=== PATIENT | male | born 1990 | race Caucasian/White ===

== ENCOUNTER 2019-10-20 15:42 | Emergency (ER) | payer SELFPAY ==
[2019-10-20 15:46] VITALS: BP 162/101; PULSE 103; RESP 20; TEMP 36.8; O2SAT 98
--- NOTE | 2019-10-20 15:56 | ED.GENADUL_ITS ---
Discharge Plan Disposition Patient Disposition: HOME Discharge Details Chief Complaint: GenMedical Clinical Impression: Heat exhaustion, Corneal abrasion Primary Care Provider: None,None ED Provider: Baljit Velez Home Meds and New Rx's Prescriptions: Continued acetaminophen 500 mg Tablet 500 mg PO PRN PRNRF: 0 Discharge Instructions Instructions: Heat Exhaustion (ED), Corneal Abrasion (ED) Additional Instructions: if discomfort in eye continues Wednesday call [facility] for an appointment [phone] if significant worsening pain, loss of vision, difficulty breathing or high fevers return to the emergency department Medical Decision Making 29 yo male who denies chronic medical problems comes in with cc of right eye p ain and fatigue. He states he was out in hot humid weather today tearing down a shed and began to feel hot and tired and lightheaded. He drank fluids and felt better but during this tearing down of the shed felt something go in his right eye. Denies vision changes, or loss of vision. He arrives with mild general fatigue, hd stable, no chest pain, dyspnea, abdominal pain, mild headache, no neck stiffness.He has right conjunctival erythema, perrl, eomi, no periorbital swelling. Will place tetracaine and perform more thorough exam. Will also give IVF and check cmp and ck for likely heat exhaustion no foreign body sen even on eyelid flip, had immediate relief of pain with tetracaine. Place flourescein and has 2mm small corneal abrasion on conjunctiva at [address] on erythromycin ointment and f/u with [facility] if not improved by Wednesday labs show mild elevation in BUN otherwise unremarkable. He feels much better, stable neuro exam and vitals. Suspect heat exhaustion. Will d/c home and return precautions given Differential Diagnosis Differential Diagnosis: foreign body, corneal abrasion, heat exhaustion Lab Data Lab results reviewed: Yes I reviewed the patient's lab results. HPI General Mode of arrival: ambulatory . Date/Time Provider Initiated Documentation: 10/20/19 15:43 . Limitations to Documentation: no limitations . Information obtained by: patient . History of Present Illness 29 year old M presents to the emergency department with the chief complaint of right eye pain, described as moderate, and it has been constant. No relieving factors improve symptom(s), No exacerbating factors reported . Patient did receive the following treatments prior to arrival, none Related Data Home Medications Medication Instructions Recorded Confirmed acetaminophen 500 mg PO PRN PRN 10/20/19 10/20/19 Allergies Allergy/AdvReac Type Severity Reaction Status Date / Time Penicillins Allergy Unknown Unverified 10/20/19 15:49 General Stated Complaint: GenMedical ARYAN: 3 Review of Systems All systems reviewed & are unremarkable except as noted in HPI and below Constitutional Constitutional: Denies chills and Denies fever(s) Cardiovascular Cardiovascular: Denies chest pain and Denies dyspnea Respiratory Respiratory: Denies cough and Denies dyspnea Gastrointestinal Gastrointestinal: Denies abdominal pain, Denies nausea and Denies vomiting Musculoskeletal Musculoskeletal: Denies joint swelling Psychiatric Psychiatric: Denies depression [facility] Social History Smoking/Tobacco Use Status: Current every day Alcohol Intake: current Alcohol Intake frequency: 0-2 drinks per day Drug use: Never Do you feel safe at home: Yes Do you feel safe in your relationship?: Yes Exam Const General: no acute distress Orientation: alert HENMT Head: normal to inspection Ears: external ears normal General nose exam: external nose normal Mouth: moist mucous membranes Eyes Periorbital: periorbital findings normal Neck Neck: normal visual inspection Resp Effort & Inspection: normal respiratory effort and able to speak in complete sentences Cardio Rate: regular rate Skin General skin exam: no rashes or lesions noted Neuro General: patient alert and patient oriented x3 Extrem General: normal to inspection Psych Mental Status: mental status grossly normal Course Vital Signs Vital signs: Vital Signs Temperature 36.8 C 10/20/19 15:46 Pulse 103 H 10/20/19 15:46 Respiratory Rate 10/20/19 15:46 Blood Pressure 162/101 H 10/20/19 15:46 Pulse Oximetry 98 10/20/19 15:46 Temperature 36.8 C 10/20/19 15:46 Temperature Source Oral 10/20/19 15:46 Pulse 103 H 10/20/19 15:46 Respiratory Rate 10/20/19 15:46 Blood Pressure 162/101 H 10/20/19 15:46 Blood Pressure Position Sitting 10/20/19 15:46 Pulse Oximetry 98 10/20/19 15:46 Oxygen Delivery Method Room Air 10/20/19 15:46 Oxygen Flow Rate 0 10/20/19 15:46
[2019-10-20] MEDS: Tetracaine 0.5% 4 ML BTL OP (16:02)
[2019-10-20] MEDS: Normal Saline 1,000 ML 1000 ML IV (16:02)
[2019-10-20] MEDS: Fluorescein STRIPS 100/BOX 1 MG OP (16:03)
[2019-10-20] MEDS: Normal Saline Flush 10 ML SYR IVP (16:03)
[2019-10-20 16:06] LABS: BE (Venous) 0.1 mmol/L (-3-3); HCO3 (Venous) 25 mmol/L (22-28); O2 Sat (Venous) 94 % (70-80); TCO2 (Venous) 22 mmol/L (22-29); pCO2 (Venous) 40 mm/Hg (34-47); pO2 (Venous) 66 mm/Hg (28-44)
[2019-10-20 16:08] LABS: Abs Immature Grans 0.03 k/cumm (0.0-0.09); Absolute Basophil Count 0.03 k/cumm (0.0-0.2); Absolute Eosinophil Count 0.05 k/cumm (0.0-0.7); Absolute Lymphocyte Count 1.43 k/cumm (1.2-3.4); Absolute Monocyte Count 1.22 k/cumm (0.11-0.7); Absolute Neutrophil Count 7.85 k/cumm (1.2-6.7); Basophils % 0.3; Eosinophils % 0.5; Immature Grans % 0.3 %; Lymphocytes % 13.5; Mean Corp. HGB Concentration 35.6 g/dL (32.0-36.0); Mean Corpuscular Hemoglobin 32.8 pg (27.0-33.0); Mean Corpuscular Volume 92.2 fL (80-95); Mean Platelet Volume 10.6 fL (8.0-11.0); Monocytes % 11.5; Neutrophils % 73.9; Platelet Count 216 x1000/uL (130-400); RBC 4.88 m/cumm (4.50-6.00); RBC Distribution Width 12.4 % (11.8-14.1); White Blood Cell Count 10.61 k/cumm (4.4-10.8)
[2019-10-20 16:21] VITALS: BP 146/95
[2019-10-20 16:24] LABS: ALT 32 U/L (16-63); AST 34 U/L (15-37); Albumin 4.4 g/dL (3.4-5.0); Alkaline Phosphatase 51 U/L (46-116); Anion Gap 8.9 mmol/L (3-11); BUN 22 mg/dL (7-18); Bilirubin, Total 1.9 mg/dL (0.2-1.0); CO2 26.1 mmol/L (21.0-32.0); Calcium 9.1 mg/dL (8.5-10.1); Chloride 100 mmol/L (98-107); Creatine Kinase 262 U/L (39-308); Glucose 113 mg/dL (74-106); Potassium 3.5 mmol/L (3.5-5.1); Sodium 135 mmol/L (136-145); Total Protein 7.5 g/dL (6.4-8.2)
[2019-10-20] MEDS: Erythromycin Ophth Oint 3.5 GM TUBE OP (16:27)
[2019-10-20 16:47] VITALS: BP 150/85; PULSE 86; RESP 18; TEMP 37.2; O2SAT 99
== END 2019-10-20 16:53 | disposition home or self-care (01) ==
PROVIDERS: Emergency Provider Emergency Medicine
DX: S05.01XA Injury of conjunctiva and corneal abrasion without foreign body, right eye, initial encounter (principal); X58.XXXA Exposure to other specified factors, initial encounter; T67.5XXA Heat exhaustion, unspecified, initial encounter; X30.XXXA Exposure to excessive natural heat, initial encounter
CPT/HCPCS: 36415; 80053; 82550; 82805; 96360; 99284; 85025

== ENCOUNTER 2023-09-27 09:45 | Emergency (ER) | payer SELFPAY ==
--- NOTE | 2023-09-27 09:45 | DI.RAD_ITS ---
Exam(s) XR SHOULDER RT COMPLETE 2+V EXAM: XR SHOULDER RT COMPLETE 2+V CLINICAL HISTORY: Fall, Pain. TECHNIQUE: 2D digital imaging was performed. Five views. COMPARISON: No exams were available for comparison FINDINGS: BONES: No acute fracture is present. No bony destructive lesion is seen. JOINTS: No dislocation present. Slight widening of the AC joint. SOFT TISSUE: Normal. IMPRESSION: Mild acromioclavicular joint separation. DATA REPOSITORY: RADIATION DOSE DELIVERED:
[2023-09-27 09:47] VITALS: BP 196/86; PULSE 70; RESP 18; TEMP 36.6; O2SAT 99
--- NOTE | 2023-09-27 10:29 | W.ED.GENAD ---
Discharge Plan Disposition Patient Disposition: Home Condition: Stable Discharge Details Clinical Impression: Separation of right acromioclavicular joint Primary Care Provider: Sylvie Rosales ED Provider: Maria T Dominguez Home Meds and New Rx's Prescriptions: No Action No Known Home Meds Discharge Instructions Instructions: Acromioclavicular Separation (ED), Shoulder Sprain (ED) Additional Instructions: X-rays show that you have a separation of the AC joint. This is like a sprain. Please keep your arm in the sling is much as possible when out and about for the next couple weeks. Do not lift your arm higher than 90 degrees. Rest ice. Please take Tylenol or Ibuprofen with food every 4-6 hours as needed for pain and swelling. You were placed on the follow-up orthopedic list today, they will call you to make an appointment if needed. If you have any worsening or concerns you may call them for a follow-up appointment. Stand Alone Forms: Work Release Referrals: Nik Akhtar MD [ [facility] STAFF PHYSICIAN] - 2 weeks Discharge Data Discharge Date/Time-TO BE ENTERED AT DEPARTURE: 09/27/23 10:59 HPI General Mode of arrival: ambulatory. Date/Time Provider Initiated Documentation: 09/27/23 09:50. Limitations to Documentation: no limitations. Information obtained by: patient, RN notes reviewed and old records reviewed. HPI Narrative: 33-year-old male presents to the ER with a chief complaint right shoulder pain after falling onto his right shoulder last night at a campfire. He has decreased range of motion noted and 6 out of 10 pain. He is able to abduct it approximately 45 degrees. Distal CMS intact no obvious deformity or obvious dislocation. He does have pinpoint tenderness over his AC joint. Did not take any Tylenol or ibuprofen prior to arrival. No other complaints of injuries denies any neck pain back pain or headache. 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 He is allergic to penicillin. Denies any other significant past medical history. Related Data Home Medications Medication Instructions Recorded Confirmed Unknown [No Known Home Meds] 09/27/23 09/27/23 Allergies Allergy/AdvReac Type Severity Reaction Status Date / Time Penicillins Allergy Unknown Anaphylaxis Unverified 09/27/23 09:50 General Stated Complaint: Orthopedic ARYAN: 4 Review of Systems All systems reviewed & are unremarkable except as noted in HPI and below Musculoskeletal Musculoskeletal: Reports system reviewed and no additional complaints, except as documented, Reports as per HPI, Reports arthralgias and Reports limited range of motion Exam Const General: cooperative, healthy appearing, comfortable and well developed Nutritional Appearance: average body habitus Orientation: alert, awake and oriented x3 Resp Effort & Inspection: normal respiratory effort and able to speak in complete sentences Cardio Rate: regular rate Rhythm: regular rhythm Extrem General: normal to inspection Right upper extremity: normal to inspection, normal capillary refill, no joint enlargement and shoulder/upper arm Details: tenderness Location: of the A-C joint and abnormal ROM Details: pain with active ROM Details: in ABduction, in extension and in internal rotation Left upper extremity: normal to inspection, full ROM and normal capillary refill Course Vital Signs Vital signs: Vital Signs Temperature 36.6 C 09/27/23 09:47 Pulse 70 09/27/23 09:47 Respiratory Rate 18 09/27/23 09:47 Blood Pressure 196/86 H 09/27/23 09:47 Pulse Oximetry 99 09/27/23 09:47 Temperature 36.6 C 09/27/23 09:47 Temperature Source Tympanic 09/27/23 09:47 Pulse 70 09/27/23 09:47 Respiratory Rate 18 09/27/23 09:47 Respiratory Effort Normal, Non-Labored 09/27/23 09:50 Blood Pressure 196/86 H 09/27/23 09:47 Blood Pressure Position Sitting 09/27/23 09:47 Pulse Oximetry 99 09/27/23 09:47 Oxygen Delivery Method Room Air 09/27/23 09:47 Oxygen Flow Rate 0 09/27/23 09:47 Pain Level 6 09/27/23 09:47 Medical Decision Making 33-year-old male presents to the ER with a chief complaint right shoulder pain after falling onto his right shoulder last night at a campfire. He has decreased range of motion noted and 6 out of 10 pain. He is able to abduct it approximately 45 degrees. Distal CMS intact no obvious deformity or obvious dislocation. He does have pinpoint tenderness over his AC joint. Did not take any Tylenol or ibuprofen prior to arrival. No other complaints of injuries denies any neck pain back pain or headache. 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 He is allergic to penicillin. Denies any other significant past medical history. On exam patient has no obvious deformity noted to his right shoulder, negative C-spine tenderness no crepitus step-off to his C-spine, no new injuries scalp injuries. He does have tenderness with pinpoint palpation over his AC joint. Distal CMS intact. Suspect AC joint separation, differential diagnosis includes but not limited to fracture occult fracture or dislocation. Sling ordered, ibuprofen and ice pack. X-ray right shoulder pending at this time. Discussed home care follow-up care pending official x-ray results. X-ray shows right AC joint separation. Patient placed in a sling, instructed on home care and use placed on orthopedic follow-up list and instructed to follow-up with orthopedics if needed for further evaluation and discussion of treatment. Patient given a work note as he is a manufacturing assembler. All the questions were answered to the best my ability. This text was generated using [employer] dictation system, please disregard any oddities of phrase or misspellings. Imaging Data Radiologic Study: Attestation: I personally reviewed and interpreted this imaging study as follows: Imaging: X-Ray My impression: Right AC joint separation Radiologist's impression: Exam: XR Right Shoulder Exam date and time: 09/27/2023 10:09 AM Age: 33 years old Clinical indication: Injury or trauma; Fall; Sprain or strain; Shoulder; Right TECHNIQUE: Imaging protocol: Radiologic exam of the right shoulder. Views: 2 or more views. COMPARISON: No relevant prior studies available. FINDINGS: Bones/joints: Acromioclavicular separation. No evidence of coracoclavicular separation. Clavicle is intact. Proximal humerus is intact. Glenohumeral joint is normal. Soft tissues: Soft tissue swelling. IMPRESSION: Acromioclavicular separation. Thank you for allowing us to participate in the care of your patient. Dictated and Authenticated by: Ryder Burger MD Quality:SDOH Health Related Social Needs: No Data to Display PFSH All Active Problems (Updated 09/27/23 @ 10:50 by Maria T Dominguez NP) Separation of right acromioclavicular joint (Acute) Social History Smoking/Tobacco Use Status: Current every day Smoking risk assessment performed?: Yes Alcohol Intake: current Alcohol Intake frequency: 0-2 drinks per day Drug use: Never Do you feel safe at home: Yes Do you feel safe in your relationship?: Yes
[2023-09-27] MEDS: Ibuprofen 600 MG TAB PO (10:34)
--- NOTE | 2023-09-27 10:42 | DI.VRAD_ITS ---
PROCEDURE INFORMATION: Exam: XR Right Shoulder Exam date and time: 09/27/2023 10:09 AM Age: 33 years old Clinical indication: Injury or trauma; Fall; Sprain or strain; Shoulder; Right TECHNIQUE: Imaging protocol: Radiologic exam of the right shoulder. Views: 2 or more views. COMPARISON: No relevant prior studies available. FINDINGS: Bones/joints: Acromioclavicular separation. No evidence of coracoclavicular separation. Clavicle is intact. Proximal humerus is intact. Glenohumeral joint is normal. Soft tissues: Soft tissue swelling. IMPRESSION: Acromioclavicular separation. Dictated and Authenticated by: Ryder Burger MD. Ordering:SANA Live MD
[2023-09-27 10:58] VITALS: BP 196/86; PULSE 70; RESP 18; TEMP 36.6; O2SAT 99
== END 2023-09-27 10:59 | disposition home or self-care (01) ==
PROVIDERS: Emergency Provider Registered Nurse Emergency; PCP Physician Assistant Medical
DX: S43.101A Unspecified dislocation of right acromioclavicular joint, initial encounter (principal); W01.0XXA Fall on same level from slipping, tripping and stumbling without subsequent striking against object, initial encounter
CPT/HCPCS: 99283; 73030

== ENCOUNTER 2023-12-13 15:16 | Emergency (ER) | payer SELFPAY ==
[2023-12-13] VITALS (12 sets, daily range): BP systolic 149–185; BP diastolic 91–112; PULSE 57–85; RESP 16–21; O2SAT 99–100
--- NOTE | 2023-12-13 15:35 | W.ED.GENAD ---
Discharge Plan Disposition Patient Disposition: Home Condition: Stable Discharge Details Clinical Impression: Anaphylaxis due to hymenoptera venom Primary Care Provider: Sylvie Rosales ED Provider: Asael Chapman Home Meds and New Rx's Prescriptions: New epinephrine [EpiPen 2-Cristobal] 0.3 mg/0.3 mL auto-injector 0.3 mg IM Q5-15M PRNQty: 2 0RF Rx Instructions: do not exceed 3 doses per episode prednisone 20 mg tablet 40 mg PO DAILY Qty: 8 0RF Rx Instructions: start 12/14/23 Discharge Instructions Instructions: Insect allergy, Anaphylaxis - Discharge instructions Additional Instructions: Continue Benadryl 25 mg every 8 hours for the next 3 days. Take prednisone as prescribed. Your next dose is tomorrow. Please contact your primary care physician to arrange follow-up. Return to the ER immediately for any worsening or new concerning symptoms. Referrals: Sylvie Rosales PA [Primary Care Provider] - [facility] General Mode of arrival: ambulatory. Date/Time Provider Initiated Documentation: 12/13/23 15:28. Limitations to Documentation: no limitations. Information obtained by: patient. HPI Narrative: 33-year-old male presents with full body rash and facial swelling after bee sting to his right hand about an hour prior to arrival. Patient notes he was stung in his hand and then developed the reaction shortly thereafter. He took Benadryl 50 mg orally. No difficulty swallowing or difficulty breathing. Related Data Home Medications ?Medication ?Instructions ?Recorded ?Confirmed epinephrine 0.3 mg/0.3 mL 0.3 mg (0.3 mL) IM Q5-15M PRN #2 ea 12/13/23 injection, auto-injector (EpiPen 2-Cristobal) prednisone 20 mg tablet 40 mg (2 x 20 mg) PO DAILY #8 tabs 12/13/23 Previous Rx's ?Medication ?Instructions ?Recorded epinephrine 0.3 mg/0.3 mL 0.3 mg (0.3 mL) IM Q5-15M PRN #2 ea 12/13/23 injection, auto-injector (EpiPen 2-Cristobal) prednisone 20 mg tablet 40 mg (2 x 20 mg) PO DAILY #8 tabs 12/13/23 Allergies Allergy/AdvReac Type Severity Reaction Status Date / Time Penicillins Allergy Unknown Anaphylaxis Unverified 12/13/23 15:49 General Stated Complaint: Allergic ARYAN: 2 Review of Systems Constitutional Constitutional: Denies fever(s) Gastrointestinal Gastrointestinal: Denies nausea and Denies vomiting Exam Const General: cooperative HENPA Head: normocephalic and atraumatic Throat: posterior oropharynx normal Other: Lip swelling Eyes Conjunctivae: normal conjunctivae Sclera: normal sclerae Neck Neck: trachea midline Resp Auscultation: clear to auscultation bilaterally, no rales, no rhonchi and no wheezes Cardio Rate: regular rate and not tachycardic Rhythm: regular rhythm GI Palpation: soft, not firm, no guarding, no masses and not rigid Skin Rashes: rashes noted (Full-body erythema) Neuro General: patient alert, patient awake and tone normal Extrem General: no edema Psych Appearance: grossly normal Mental Status: mental status grossly normal Course Vital Signs Vital signs: Vital Signs Pulse 85 12/13/23 15:21 Respiratory Rate 16 12/13/23 15:21 Blood Pressure 174/103 H 12/13/23 15:21 Pulse Oximetry 99 12/13/23 15:21 Pulse 85 12/13/23 15:21 Respiratory Rate 16 12/13/23 15:21 Respiratory Effort Normal, Non-Labored 12/13/23 15:24 Blood Pressure 174/103 H 12/13/23 15:21 Blood Pressure Position Sitting 12/13/23 15:21 Pulse Oximetry 99 12/13/23 15:21 Oxygen Delivery Method Room Air 12/13/23 15:21 Oxygen Flow Rate 0 12/13/23 15:21 Medical Decision Making 1538??33-year-old male presents with hymenoptera sting right hand and associated anaphylaxis. Patient has full body rash and lip swelling. Patient took Benadryl prior to arrival. He is hypertensive. Plan to give epinephrine IM, Solu-Medrol IV, and Pepcid IV. Will give IV fluid bolus. Plan to reassess. 1700 --patient reassessed and all symptoms resolved. Plan for discharge with outpatient follow-up. Patient will continue to self monitor at home with his family. Usual customary discharge instructions reviewed with patient. He understands importance to return immediately for any worsening or new concerning symptoms Quality:SDOH Health Related Social Needs: No Data to Display PFSH All Active Problems (Updated 12/13/23 @ 15:40 by Asael Chapman MD) Anaphylaxis due to hymenoptera venom (Acute) Social History Smoking/Tobacco Use Status: Current every day Smoking risk assessment performed?: Yes Alcohol Intake: current Alcohol Intake frequency: 0-2 drinks per day Drug use: Never Do you feel safe at home: Yes Do you feel safe in your relationship?: Yes
[2023-12-13] MEDS: methylPREDNISolone SUCC 125 MG VIAL 60 MG IVP (15:38)
[2023-12-13] MEDS: EPINEPHrine 0.3 MG KIT IM (15:38)
[2023-12-13] MEDS: FAMOTIDINE 20 MG/50 ML BAG 50 MG (15:39)
[2023-12-13] MEDS: Lactated Ringers 1,000 ML 1000 ML IV (15:39)
--- OUTSIDE RECORDS SUMMARY | 2023-12-13 16:58 | XMS_ITS | Clinical Summary ---
Author Organization [facility] Address [facility] [place] [address] Care Team Providers Care Manager Mba Name Role Phone Unknown Primary Care Provider Unavailabl e Allergies Active Allergy Reactions Criticality Noted Date Comments Amoxicillin Trihydrate Penicillins Medications Medication Sig Dispensed Refills Start Date End Date Status divalproex (DEPAKOTE) 250 mg EC tablet 500 MG = 2 Tablet(s) PO Twice daily 07/24/2008 Active ibuprofen (ADVIL;MOTRIN) 600 mg tablet Take 1 tablet by mouth every 6 hours as needed for Pain. 30 tablet 0 03/20/2011 Active Social History Tobacco Use Types Packs/Day Years Used Date Smoking Tobacco: Never Assessed Sex and Gender Information Value Date Recorded Sex Assigned at Not on file Gender Identity Not on file Sexual Orientation Not on file Last Filed Vital Signs Vital Sign Reading Time Taken Comments Blood Pressure 132/71 03/20/2011 10:07 PM EST Pulse 64 03/20/2011 10:07 PM EST Temperature 36.6 ??C (97.9 ??F) 03/20/2011 10:[address] Respiratory Rate 18 03/20/2011 10:07 PM EST Oxygen Saturation 99% 03/20/2011 10:07 PM EST Inhaled Oxygen Concentration - - Weight 65.8 kg (145 lb) 03/20/2011 10:07 PM EST Height 185.4 cm (6' 1) 03/20/2011 10:07 PM EST Body Mass Index 19.13 03/20/2011 10:07 PM EST Plan of Treatment Health Maintenance Due Date Last Done Comments HIV screen 2010 Hepatitis C Screening 2010 Hepatitis B vaccine (0-59 yrs) (1) 2011 Tdap adult 2011 Tetanus vaccine 2011 Covid-19 Vaccine ( - 2022-24 season) 2023 Influenza (Flu) vaccine (1 o f 1 - Influenza standard series) 01/02/2024 Care Teams Manager Mba Relationship Specialty Start Date End Date Unknown None PCP - General 09/16/21
--- OUTSIDE RECORDS SUMMARY | 2023-12-13 16:58 | XMS_ITS | Encounter Summary ---
[place] [address] Care Team Providers Care Wire Temperer Name Role Phone Humberto Martino MD Primary Care Provider [phone] Reason for Visit * Reason Comments Testicle Pain Encounter Details Date Type Department Care Team (Late st Contact Info) Description 03/20/2011 9:55 PM EST - 03/21/2011 12:30 AM EST [place] [address] EMERGENCY DEPT, [facility] [place] [address] Discharge Disposition: Home Social History Tobacco Use Types Packs/Day Years Used Date Smoking Tobacco: Never Assessed Sex and Gender Information Value Date Recorded Sex Assigned at Not on file Gender Identity Not on file Sexual Orientation Not on file documented as of this encounter Last Filed Vital Signs Vital Sign Reading [...] Mass Index 19.13 03/20/2011 10:07 PM EST Body Mass Index Percentile 7.87% 03/20/2011 10: 07 PM EST Growth Chart: CDC (Boys, 2-2 0 Years) documented in this encounter Discharge Instructions * Discharge Instructions* Jose Salcido - 03/20/2011 11:55 PM EST You have been diagnosed with right sided epididymitis. This is an inflammation of the epididymis, and organ that connects the testis to the tube leading up to the groin and penis. This may or may not be infected and may or may not be realated to a sexually transmitted disease. We will start you on an antibiotic called doxycycline which you should take twice a day for 10 daysand ibuprofen which you should take as needed for pain, but no more than 600 mg four times a day. We will call you with the results of the urine culture, but these usually take some time to get back and you will likely not get a call until Wednesday or Wednesday. We advice icepack on the scrotum for comfort. We advise holding of intercourse until you have finished your antibiotic course Follow up is not needed unless you do not get better. documented in this encounter Medications at Time of Discharge Medication Sig Dispensed Refills Start Date End Date ibuprofen (ADVIL;MOTRIN) 600 mg tablet Take 1 tablet by mouth every 6 hours as needed for Pain. 30 tablet 0 03/20/2011 divalproex (DEPAKOTE) 250 mg EC tablet 500 MG = 2 Tablet(s) PO Twice daily 07/24/2008 doxycycline (VIBRAMYCIN) 100 mg capsule Take 1 capsule by mouth 2 times daily for 10 days. 20 capsule 0 03/20/2011 03/30/2011 documented as of this encounter ED Notes * Phuong Carmichael RN - 03/20/2011 10:22 PM EST Pt Walked to room 2, in no acute distress, urology paged and will be down to eval. patient documented in this encounter Miscellaneous Notes * Discharge Summary - Provider, Scanning - 03/23/2011 8:57 AM EST * Miscellaneous - Provider, Scanning - 03/21/2011 6:10 AM EST * Consult Note - Jose Salcido P - 03/20/2011 10:53 PM EST UROLOGY CONSULTATION I have been asked to see the patient by the ED phycisians for evaluation and recommendations of suspected torsion of the testis. CC: Right testicular pain HPI: Other comer healthy, sexually active (same female partner for 13 months)20 yo male wakes up this morning with severe right sided testicular pain, which has remained constant through out the day. He has additionally had intermittent right groin pain. No fevers, chills, dysuria, frequency or urgency. Lower urinary tract symptoms include:None Other urologic history includes: He does not have a history of UTI or STD He does not have a history of Urolithiasis He has not had a vasectomy He does not have a history of erectile dysfunction There is no problem list on file for this patient. History Substance Use Topics ??? Smoking status: Not on file ??? Smokeless tobacco: Not on file ??? Alcohol Use: Not on file No current facility-administered medications on file prior to encounter. Current outpatient prescriptions ordered prior to encounter Medication Sig Dispense Refill ??? divalproex (DEPAKOTE) 250 mg EC tablet 500 MG = 2 Tablet(s) PO Twice daily FAMILY HISTORY: No hx of malignancy or Stones Bleeding disorders: Anesthesia complications: Review of Systems General Health: excellent. GENERAL: Denies fevers, sweats, chills, anorexia, denies weight changes, sleeps well ORAL SURGERY ASSISTANT: No headaches or loss of consciousness, denies balance difficulty, denies pins/needle sensations, denies coordination problems, RESP: No cough or breathing difficulties. CVS: No chest pain or MCPHERSON. No claudication. GI: Normal appetite and bowels. MUSCULOSKELETAL: No joint or muscle aches or dysfunction. SKIN: denies rashes, moles, lesions, denies hair or nail changes PSYCH: denies depression, SI/HI EXAMINATION: Filed Vitals: 03/20/11 2207 BP: 132/71 Pulse: 64 Temp: 36.6 ??C (97.9 ??F) Resp: 18 General: Oriented to person, place and time. Healthy appearance. Color normal. No significant skin lesions. There is no significant unusual hair pattern or gynecomastia. Abdomen: benign without masses, rebound, guarding, or tenderness. No hepatosplenogmegaly. No CVA tenderness. Genitalia: Scrotum - Color and texture normal; no masses. Left testis and epididymitis with out tenderness or masses. Cremasteric reflex intact. Right testicle soft, somewhat tender, freely mobile. Tender firmness of superior epididymal pole. Very tender over vas. No erythema or induration. Penis - circumcised with orthotopic meatus; nomasses or surface lesion. Musculoskeletal: good strength in bilateral upper and lower extremities Neurologic: grossly normal Vascular: positive pedal pulses No results found for this basename: wbc, hgb, platelet, na, k, cl, co2, bun, creatinine, magnesium,inr, ptt, cardiac enzymes UA: pending, but negative at OSH Imaging: No torsion. R epididymis mildly enlarged/hypervascular c/w epididymitis in appropriate clinical context. Small R hydrocele. Assessment: R epididymitis Recommendations: Doxytab, ibuprofen, icepacks. Ceftriaxone im omitted due to penicillin allergy D/C to home. Follow up prn I have discussed the findings and plans with Dr Flowers. * ED Triage - Adriana Bhakta RN - 03/20/2011 10:12 PM EST Pt presents in company of friend and girlfriend who drove him here from [facility]. Pt states woke early this am with severe right testicular pain. States went to local ED where was seen and treated and sent here for further eval for testicular torsion. Arrives with some documentation. Denies nausea or vomiting, has pain now. Looks very uncomfortable. documented in this encounter Plan of Treatment Not on file documented as of this encounter Procedures Procedure Name Priority Date/Time Associated Diagnosis Comments URINE CULTURE STAT 03/20/2011 11:49 PM EST GC/CHLAMYDIA Routine 03/20/2011 11:48 PM EST GC/CHLAM Routine 03/20/2011 11:48 PM EST URINALYSIS WITH REFLEX CULTURE STAT 03/20/2011 11:48 PM EST US SCROTUM STAT 03/20/2011 11:32 PM EST documented in this encounter Results * Urine culture Clean Catch Urine (03/20/2011 11:49 PM EST) Urine Culture ? Patient Name: ZAFAR MURRAY JR ?Ordered By: CARINE FLOWERS ? MR#: [id number] ?LOC: ??ED ? /Sex: ?? 2 (21 years), ? Male ? PROCEDURE: Urine Culture ?SOURCE: U CC ? COLLECTED: 03/20/2011 23:49 ? STARTED: 03/21/2011 08:47 ? FINAL REPORT ? Final Report ? Verified: 08:28 ? No growth (Less than 1,000 cfu/ml). ? ____ [facility] Urine specimen obtained by clean catch procedure (specimen) 03/20/2011 11:49 PM EST 03/21/2011 8:47 AM EST Carine Flowers MD MICROBIOLOGY - GENER AL ORDERABLES [facility] * GC/CHLAM (03/20/2011 11:48 PM EST) GC Gene Amp Negative Negative CERNER MILLENNIUM Comment: The only FDA approved specimen types for this assay are cervix, vagina, urethra and urine. ??The sensitivity and specificity of the assay for other specimen types has not been determined. Source Urine CERNER MILLENNIUM Chlamydia Gene Amp Negative Negative CERNER MILLENNIUM Comment: The only FDA approved specimen types for this assay are cervix, vagina, urethra and urine. ??The sensitivity and specificity of the assay for other specimen types has not been determined. Chl Source Urine CERNER MILLENNIUM Specimen of unknown material (specimen) 03/20/2011 11:48 PM EST 03/21/2011 8:47 AM EST Carine Flowers MD MICROBIOLOGY - GENER AL ORDERABLES [facility] * (ABNORMAL) Urinalysis with microscopic (03/20/2011 11:48 PM EST) Glucose, Urine Dipstick Negative Negative mg/dL CERNER MILLENNIUM Protein, Urine Dipstick 100(A) Neg mg/dL CERNER MILLENNIUM Bilirubin, Urine Dipstick Negative Negative mg/dL CERNER MILLENNIUM Urobilinogen, Urine Dipstick Normal mg/dL CERNER MILLENNIUM pH, Urn (dipstick) 6.0 5.0 - 8.0 CERNER MILLENNIUM Blood, Urine Dipstick Negative mg/dL CERNER MILLENNIUM Ketone, Urine Dipstick Negative mg/dL CERNER MILLENNIUM Nitrite, Urine Dipstick Negative CERNER MILLENNIUM Leukocytes, Urine Dipstick Negative mcL CERNER MILLENNIUM Appearance, Urine Dipstick Clear Clear CERNER MILLENNIUM Specific [place] Urine Automated 1.025 1.002 - 1.030 CERNER MILLENNIUM Color, Urine Dipstick Yellow Yellow CERNER MILLENNIUM RBC, Urine Not Present 0 - 3 CERNER MILLENNIUM WBC, Urine 1 0 - 3 /HPF CERNER MILLENNIUM Urine specimen (specimen) 03/20/2011 11:48 PM EST 03/21/2011 12:01 AM EST Carine Flowers MD URINE ORDERABLES KACIE DELGADO * US scrotum (03/20/2011 11:32 PM EST) Anatomical Region Laterality Modality Pelvis Ultrasound 03/20/2011 11:3 2 PM EST Impressions 03/21/2011 12:18 PM EST IMPRESSION: ?? 1. ??No evidence for testicular torsion. 2. ??Mildly enlarged, hypervascular right sided epididymis, consistent with clinical history of epididymitis in appropriate context. Film and interpretation reviewed by the attending Narrative 03/21/2011 12:18 PM EST SCROTAL ULTRASOUND 03/20/2011 CLINICAL HISTORY: ??Right sided testicular pain, sent from outside hospital for rule out torsion though clinical exam more consistent with epididymitis, question torsion. COMPARISON: ??None. FINDINGS: ??Right and left testicles are normal in appearance with left testicle measuring 3.9 x 2.3 x 3.1 cm and right testicle measuring 4.2 x 2.1 x 2.5 cm. ?? Normal blood flow seen to both testes. ??Note is made of a small right sided hydrocele as well as mildly enlarged right epididymis which is hypervascular, particularly when compared to the left side. Procedure Note Yuan Hector MD - 03/21/2011 SCROTAL ULTRASOUND 03/20/2011 CLINICAL HISTORY: Right sided testicular pain, sent from outside hospitalfor rule out torsion though clinical exam more consistent with epididymitis, question torsion. COMPARISON: None. FINDINGS: Right and left testicles are normal in appearance with lefttesticle measuring 3.9 x 2.3 x 3.1 cm and right testicle measuring 4.2 x 2.1 x 2.5cm. Normal blood flow seen to both testes. Note is made of a small rightsided hydrocele as well as mildly enlarged right epididymis which ishypervascular, particularly when compared to the left side. IMPRESSION IMPRESSION: 1. No evidence for testicular torsion. 2. Mildly enlarged, hypervascular right sided epididymis, consistent with clinical history of epididymitis in appropriate context. Film and interpretation reviewed by the attending Carine Flowers MD IMG US GEN ORDERABLE S documented in this encounter Visit Diagnoses Not on filedocumented in this encounter Care Teams Wire Temperer Relationship Specialty Start Date End Date Humberto Martino MD [address] [place] [address] PCP - General 03/25/10 09/15/21 documented as of this encounter
== END 2023-12-13 17:07 | disposition home or self-care (01) ==
LOC: ER 16:56
PROVIDERS: Emergency Provider Student in an Organized Health Care Education/Training Program; PCP Physician Assistant Medical
DX: T78.2XXA Anaphylactic shock, unspecified, initial encounter; T63.441A Toxic effect of venom of bees, accidental (unintentional), initial encounter
CPT/HCPCS: 36415; 96361; 96374; 99284; 99283; J0171; J2919

== ENCOUNTER 2024-06-28 07:52 | Emergency (ER) | payer OTHER, SELFPAY ==
[2024-06-28 07:55] VITALS: BP 184/111; PULSE 85; RESP 15; TEMP 36.7; O2SAT 95
[2024-06-28 07:58] VITALS: BP 184/111; PULSE 85; RESP 15; TEMP 36.7; O2SAT 95
[2024-06-28] MEDS: Lidocaine 2% Viscous 15 ML CUP MM (08:11)
--- NOTE | 2024-06-28 08:30 | RT.EKG_ITS ---
APPROVED REPORT Exam: Resting ECG Reason for Exam: chest discomfort Patient Location: E HR:60 bpm ECG Measurements Heart Rate 60 AXIS [place] 175 P 39 QRSd 78 QRS 65 QT 429 T 61 QTc 427 Conclusion Sinus rhythm, rate 60 No interval abnormalities Diffuse ST segment elevation, no reciprocal changes, concave, consider pericarditis vs JULIÁN, no priors available for comparison
--- NOTE | 2024-06-28 08:33 | ED.GENADUL_ITS ---
Discharge Plan Disposition Patient Disposition: Home Discharge Details Clinical Impression: Hypertension, Chest discomfort, Anxiety, Mouth sores Primary Care Provider: Sylvie Rosales ED Provider: Zuleyma Hayward Home Meds and New Rx's Prescriptions: New lisinopril 5 mg tablet 5 mg PO DAILY Qty: 30 0RF No Action epinephrine [EpiPen 2-Cristobal] 0.3 mg/0.3 mL auto-injector 0.3 mg IM Q5-15M PRNQty: 2 0RF Rx Instructions: do not exceed 3 doses per episode lidocaine HCl 2 % solution 1 applic mucous membrane DAILY prednisone 20 mg tablet 40 mg PO DAILY PRN Rx Instructions: start 12/14/23 triamcinolone acetonide 0.1 % paste 1 applic mucous membrane DAILY Discharge Instructions Additional Instructions: A referral has been placed to care management to help you establish care with a primary care provider. Continue taking the medications prescribed for your oral sores. Stay well- hydrated, drinking plenty of fluids throughout the day. Eat gentle foods, avoiding anything spicy/greasy/fried/acidic/crunchy. Your chest pain workup and blood work today was reassuring. However, your blood pressure was very elevated today. I we will send a prescription for you to start a low-dose antihypertensive medication to help manage your blood pressure. Please take as prescribed. I recommend that you follow-up with primary care/ express care or have your blood pressure checked at home by health professional in the next week. Return to emergency care if you develop new chest pains, dizziness, episodes of passing out, are unable to hold down any fluids, or if you are very worried and need to be rechecked again immediately Referrals: Care Management [Provider Group] HPI General Date/Time Provider Initiated Documentation: 06/28/24 07:59 . HPI Narrative: Zafar is a 34 year old male who presents to the emergency department today for evaluation of mouth sores accompanied by feeling of anxiety, weakness, and chest discomfort. He reports mouth sores started a week ago; they cause significant discomfort and admit difficult to sleep or eat/drink. He admits that he has had these multiple times in the past, but 2 episodes most recently. He was seen in express care last night, prescribed nystatin and lidocaine, but he was unable to pick these up because the pharmacy was already closed. This morning he became concerned because he started feeling anxious while driving to work, describes chest discomfort and a feeling of anxiety with generalized weakness. Denies associated dizziness, diaphoresis, radiation of pain, oppositionality of pain. Otherwise feels well, denies fever/chills, headaches, dizziness, difficulty swallowing, congestion, cough, shortness of breath, nausea/vomiting, abdominal pain, change in bowel or bladder function. He says that he has not been able to drink much over the last couple of days due to the discomfort in his mouth, says he is only been drinking about 12 ounces of fluid a day. Denies significant past medical history; does not have a PCP at this time. Blood pressure was noted to be elevated yesterday and today, he denies history of elevated blood pressure in the past. Physical exam reassuring. Zafar is alert and oriented, no acute distress. S hallow erythematous lesions noted to buccal mucosa of lower lip and cheeks, faint scattered white patches noted overlying. No trismus, intraoral swelling, tongue swelling, change in voice. Normal heart sounds. No pain with palpation of chest wall, deformity, or crepitus. Easy work of breathing, lung sounds clear bilaterally. Abdomen is soft, nondistended, nontender to palpation D/dx includes but is not limited to: Herpetic ulcerations, aphthous ulcers, thrush. As patient is not feeling well with elevated blood pressure, will obtain EKG and labs to rule out target endorgan dysfunction I independently interpreted the following tests: CBC, BMP, serial troponins all reassuring. Serial EKGs performed, shows normal sinus rhythm rate 60, normal intervals. Diffuse ST elevation noted, no previous available for comparison. While in the emergency department, Zafar received viscous lidocaine for mouth discomfort, this provided good relief. Ativan given for anxiety, this resulted in complete resolution of chest discomfort. He has been able to tolerate p.o. katelyn mohit and crackers in the emergency department with no difficulty POCUS echo was performed with Dr. Narayan, no pleural effusion noted. Diffuse ST elevations most likely early repolarization, as patient does not fit profile pericarditis, with full improvement of chest pain with anxiolytic. Patient has had persistently elevated blood pressures, 184/111 and 167/107 here in the ED today, and 197/128 and 162/98 yesterday express care. Referral placed for establishing care with PCP, in the meantime a limited prescription of lisinopril 5 mg given. 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 Reviewed discharge instructions with patient and his , including workup performed today, use of antihypertensive medications, lifestyle modification such as decreasing vaping, symptomatic management of mouth sores, and red flags indicating need for return to emergency care Related Data Home Medications ?Medication ?Instructions ?Recorded ?Confirmed epinephrine 0.3 mg/0.3 mL 0.3 mg (0.3 mL) IM Q5-15M PRN #2 ea 12/13/23 06/28/24 injection, auto-injector (EpiPen 2-Cristobal) lidocaine HCl 2 % mucosal solution 1 applic mucous membrane DAILY 06/28/24 06/28/24 lisinopril 5 mg tablet 5 mg PO DAILY #30 tabs 06/28/24 prednisone 20 mg tablet 40 mg PO DAILY PRN 06/28/24 06/28/24 triamcinolone acetonide 0.1 % 1 applic mucous membrane DAILY 06/28/24 06/28/24 dental paste Previous Rx's ?Medication ?Instructions ?Recorded epinephrine 0.3 mg/0.3 mL 0.3 mg (0.3 mL) IM Q5-15M PRN #2 ea 12/13/23 injection, auto-injector (EpiPen 2-Cristobal) lisinopril 5 mg tablet 5 mg PO DAILY #30 tabs 06/28/24 Allergies Allergy/AdvReac Type Severity Reaction Status Date / Time Penicillins Allergy Unknown Anaphylaxis Unverified 06/28/24 08:01 General Stated Complaint: DentalOral ARYAN: 3 Review of Systems Narrative: see HPI Exam Const General: cooperative, healthy appearing, comfortable, no acute distress, well developed and well groomed Nutritional Appearance: average body habitus Orientation: alert and oriented x3 Chest Chest: normal inspection of the chest and normal palpation of entire chest wall Resp Effort & Inspection: normal respiratory effort and able to speak in complete sentences Auscultation: clear to auscultation bilaterally Cardio Rate: regular rate Rhythm: regular rhythm GI Inspection: normal to inspection and non-distended Palpation: soft, not firm, not rigid and nontender Extrem General: normal to inspection Course Vital Signs Vital signs: Vital Signs Temperature 36.7 C 06/28/24 07:55 Pulse 85 06/28/24 07:55 Respiratory Rate 15 06/28/24 07:55 Blood Pressure 184/111 H 06/28/24 07:55 Pulse Oximetry 95 06/28/24 07:55 Temperature 36.7 C 06/28/24 07:58 Temperature Source Temporal Artery Scan 06/28/24 07:58 Pulse 85 06/28/24 07:58 Respiratory Rate 15 06/28/24 07:58 Blood Pressure 184/111 H 06/28/24 07:58 Blood Pressure Position Sitting 06/28/24 07:58 Pulse Oximetry 95 06/28/24 07:58 Oxygen Delivery Method Room Air 06/28/24 07:58 Oxygen Flow Rate 0 06/28/24 07:58 Pain Level 5 06/28/24 08:00 Medical Decision Making Quality:SDOH Health Related Social Needs: No Data to Display PFSH All Active Problems (Updated 06/28/24 @ 10:51 by Zuleyma Huitron) Mouth sores (Acute) Anxiety (Chronic) Chest discomfort (Acute) Hypertension (Chronic) Social History Smoking/Tobacco Use Status: Current every day Tobacco Type: e-cigarettes Smoking risk assessment performed?: Yes Alcohol Intake: current Alcohol Intake frequency: 0-2 drinks per day Drug use: Occasionally Substance use type: marijuana Do you feel safe at home: Yes Do you feel safe in your relationship?: Yes PAWSS Have you Been Recently Intoxicated or Drunk Within the Last 30 days?: No Have you Ever Experienced Previous Episodes of Alcohol Withdrawal?: No Have you ever Experienced Withdrawal Seizures?: No Have you ever Experienced Delirium Tremens(DT)s?: No Have you ever undergone Alcohol Rehabilitation Treatment (i.e, inpt ot outpatient treatment programs)?: No Have you ever Experienced Blackouts?: No Have you ever Combined Alcohol with other Downers within the last 90 days?: No Have you ever Combined Alcohol with any other Substance of Abuse during the last 90 days?: No Result: 0
[2024-06-28 08:50] LABS: HCT 47.5 % (40.0-50.0); HGB 16.1 g/dL (13.5-17.5); MCH 31.2 pg (27.0-33.0); MCHC 33.9 % (32.0-36.0); MCV 92 fL (80-95); MPV 9.7 fL (8.0-11.0); Platelet Count 271 10^3/uL (130-400); RBC 5.16 10^6/uL (4.36-5.78); RDW 12.1 % (11.8-14.1); RDW-SD 41.5 fL; WBC 4.79 10^3/uL (4.4-10.8)
[2024-06-28] MEDS: LORazepam 0.5 MG TAB PO (08:54)
[2024-06-28 09:13] LABS: Anion Gap 10.2 mmol/L (3-11); BUN 8 mg/dL (7-18); CO2 27.8 mmol/L (21.0-32.0); CREATININE 0.9 mg/dL (0.70-1.30); Calcium 9.8 mg/dL (8.5-10.1); Chloride 104 mmol/L (98-107); Estimated GFR 116.37 (mL/min/1.73m2); Glucose 76 mg/dL (74-106); Potassium 4.6 mmol/L (3.5-5.1); Sodium 142 mmol/L (136-145)
--- NOTE | 2024-06-28 09:15 | RT.EKG_ITS ---
APPROVED REPORT Exam: Resting ECG Reason for Exam: recheck from previous Patient Location: E HR:61 bpm ECG Measurements Heart Rate 61 AXIS [place] 153 P -89 QRSd 83 QRS 56 QT 430 T 56 QTc 433 Conclusion Atrial rhythm, p waves flipped from priors, rate 61 No interval abnormalities Diffuse ST segment elevation and tall T waves persist compared to prior, concave, JULIÁN vs pericarditis likely
[2024-06-28 09:22] LABS: Troponin I 4 ng/L (<or=76)
[2024-06-28 09:34] LABS: Lab Add On Test DONE
[2024-06-28 10:28] LABS: Troponin I 4 ng/L (<or=76)
[2024-06-28 10:50] VITALS: BP 163/107
[2024-06-28 11:08] VITALS: BP 167/108; PULSE 68; RESP 14; O2SAT 99
== END 2024-06-28 11:11 | disposition home or self-care (01) ==
PROVIDERS: Emergency Provider Nurse Practitioner Family
DX: I10 Essential (primary) hypertension (principal); R07.9 Chest pain, unspecified; F41.9 Anxiety disorder, unspecified; K13.79 Other lesions of oral mucosa
CPT/HCPCS: 36415; 80048; 85027; 93005; 93308; 99284; 84484; 93010

== ENCOUNTER 2024-08-29 16:14 | Outpatient (REF) | payer OTHER, SELFPAY ==
--- NOTE | 2024-08-29 15:45 | ORMUBX_PTH ---
PATIENT: Zafar Murray JR LOC: N U#:[id number] AGE/SX: 34/M ROOM: RE08/29/[address]: Bandar Singleton MD : 1990 BED: DIS: 08/29/2024 SPEC #: [id number] RECD: 08/29/24 18:24 STATUS: CÉSAR REQ #: [id number] [place]: 08/29/24 15:[address]: Bandar Singleton DEPT: Surgical Specimen RECD BY: Sofy Santos Tissues: 1 - MUCOSA, NOS Procedures: C3 Immunofluorescent Ab IgA Immunofluorescent Ab IgM Immunofluorescent Ab Polyvalent IF IgG Immunofluorescent Ab Comments: [id number] (SUBMITTED IN [facility])
== END 2024-08-29 16:15 | disposition home or self-care (01) ==
LOC: LBN 16:14
PROVIDERS: PCP Family Medicine; Referring Provider Family Medicine; Visit Provider Otolaryngology
DX: K12.30 Oral mucositis (ulcerative), unspecified (principal)
CPT/HCPCS: 88346

== ENCOUNTER 2024-09-08 11:33 | Outpatient (CLI) | payer OTHER, SELFPAY ==
[2024-09-08 12:08] LABS: ESR < 1 mm/hr (0-15)
[2024-09-08 12:19] LABS: Lab Add On Test DONE
[2024-09-08 12:38] LABS: C-Reactive Protein < 0.50 mg/dL (<or=0.5)
[2024-09-11 13:51] LABS: ANA Interpretation Negative (Negative)
[2024-09-12 13:46] LABS: Myeloperoxidase Ab IgG <0.2 U (>=0.4); Proteinase 3 Ab (PR3) <0.2 U
[2024-09-19 09:02] LABS: Misc Referral (MAYO) See Comments
== END 2024-09-08 11:34 | disposition home or self-care (01) ==
PROVIDERS: PCP Family Medicine; Visit Provider Registered Nurse Maternal Newborn
DX: K13.70 Unspecified lesions of oral mucosa (principal)
CPT/HCPCS: 36415; 83516; 85652; 86038; 86140

== ENCOUNTER 2024-09-13 17:46 | Outpatient (REF) | payer OTHER, SELFPAY ==
--- NOTE | 2024-09-13 15:55 | ORMUBX_PTH ---
PATIENT: Zafar Murray JR LOC: [facility] U#:[id number] AGE/SX: 34/M ROOM: RE09/13/[address]: Mini Soto : 1990 BED: DIS: 09/13/2024 SPEC #: [id number] RECD: 09/13/24 18:14 STATUS: CÉSAR REQ #: [id number] [place]: 09/13/24 15:[address]: Mini Soto DEPT: Surgical Specimen RECD BY: Sofy Santos Tissues: 1 - MUCOSA, NOS Procedures: GROSS AND MICRO LEVEL 4 Comments: [id number]
== END 2024-09-13 17:47 | disposition home or self-care (01) ==
LOC: LBN 17:46
PROVIDERS: PCP Family Medicine; Visit Provider Registered Nurse Maternal Newborn
DX: K13.29 Other disturbances of oral epithelium, including tongue (principal)
CPT/HCPCS: 88305

== ENCOUNTER 2024-11-16 16:24 | Outpatient (CLI) | payer OTHER, SELFPAY ==
[2024-11-16 17:10] LABS: Ferritin 309 ng/mL (26-388); Vitamin B12 586 pg/mL (193-986)
[2024-11-16 17:11] LABS: Folate > 20.0 ng/mL (8.6-20.0)
[2024-11-16 17:36] LABS: Iron 80 ug/dL (65-175); Total Iron Binding Capacity 307 ug/dL (250-450); Transferrin Sat 26 % (20-55)
[2024-11-20 09:30] LABS: HIV-1/2 Ag & Ab Screen Negative (Negative)
[2024-11-20 14:03] LABS: Pyridoxal 5-Phosphate (PLP), P 53 mcg/L (5-50)
[2024-11-21 11:23] LABS: Riboflavin (Vitamin B2), P 7 mcg/L (1-19)
[2024-11-22 08:47] LABS: Thiamine (Vitamin B1), WB 158 nmol/L (70-180)
== END 2024-11-16 16:25 | disposition home or self-care (01) ==
LOC: LBO 16:27
PROVIDERS: PCP Family Medicine; Visit Provider Dermatology
DX: R63.4 Abnormal weight loss (principal); K12.0 Recurrent oral aphthae; R14.0 Abdominal distension (gaseous); Z13.21 Encounter for screening for nutritional disorder
CPT/HCPCS: 36415; 82784; 83516; 84252; 84630; 87389; 82607; 82728; 82746; 83540; 83550; 84207; 84425

== ENCOUNTER 2025-01-22 08:42 | Day surgery (SDC) | payer OTHER, SELFPAY ==
[2025-01-22 08:53] VITALS: BP 165/90; PULSE 61; RESP 18; TEMP 36.4; O2SAT 100
[2025-01-22] MEDS: Lactated Ringers 1,000 ML 80 ML IV (09:09)
--- NOTE | 2025-01-22 09:19 | W.PM.HP.N ---
Date of service: 01/22/25 Time of Service: : Assessment and Plan Assessment and plan (1) Chronic diarrhea of unknown origin: Status: Acute Assessment and plan: EGD and colonoscopy planned. Plan for biopsies for eval for celiac sprue, enteropathy, H pylori, and microscopic colitis. Discussed egd and colonoscopy procedure risks, benefits, alternatives and expectations. Proceed as planned. (2) Weight loss, non-intentional: Status: Acute Assessment and plan: as above. History of Present Illness Narrative: 34yo M here for colonoscopy. He was seen in office last month about diarrhea and severe weight loss. He presents with his spouse. He has had weight loss, loose stools, and poor intake of food ongoing for several month. He experienced an illness and mouth sore where he underwent an extensive evaluation. He could not eat or drink due to pain. He eventually improved and resolved the area w the help of ENT, but during this time, he developed worsening trouble eating. He gets urgent severe diarrhea with any oral intake of food. There are no specific foods that trigger it, feels like anythign he eats goes right through him. He gets watery, loose stools. There is no blood in the stool. He has not had melena. He has had significant weight loss in the last 6 months. he fees fatigue and weakness due to not being able to eat well or hold on to his food for long enough to feel satisfied. PFSH All Active Problems (Updated 01/22/25 @ 09:20 by Rosemary Chandra MD) Weight loss, non-intentional (Acute) Chronic diarrhea of unknown origin (Acute) Oral mucosal lesion (Acute) Medical History Headache Seizure Pt. states he has not had a seizure in 10-15 years-Pt. states he had testing done and they did not find anything, and does not f/u with neuro currently Recurrent aphthous ulcer Aphthous ulcer of mouth Cannabis use disorder Family History Father Diabetes Hypertension Head and neck cancer Social History Smoking/Tobacco Use Status: Current every day Tobacco Type: e-cigarettes Smoking risk assessment performed?: Yes Alcohol Intake: current Alcohol Intake frequency: 0-2 drinks per day Drug use: Occasionally Substance use type: marijuana Details: last drink 01/20/25 1700, last cannabis 01/20/25, daily average is 1 bowl. Housing: apartment Do you feel safe at home: Yes Do you feel safe in your relationship?: Yes Meds Allergies and Home Medications Allergies Allergy/AdvReac Type Severity Reaction Status Date / Time bee venom protein (honey bee) Allergy Severe Anaphylaxis Verified 01/22/25 08:50 Penicillins Allergy Unknown Anaphylaxis Verified 01/22/25 08:50 Home Medications ?Medication ?Instructions ?Recorded ?Confirmed ?Type epinephrine 0.3 mg/0.3 mL 0.3 mg (0.3 mL) IM Q5-15M PRN #2 ea 12/13/23 01/22/25 Rx injection, auto-injector (EpiPen 2-Cristobal) triamcinolone acetonide 0.1 % 1 applic mucous membrane DAILY 06/28/24 01/22/25 History dental paste famotidine 20 mg tablet 20 mg PO BID PRN 08/23/24 01/22/25 History propranolol 10 mg tablet 10 mg PO BID PRN 08/23/24 01/17/25 History amlodipine 5 mg tablet 5 mg PO DAILY 12/08/24 01/22/25 History colchicine 0.6 mg tablet 0.6 mg PO BID 12/08/24 01/22/25 History multivitamin 1 tab PO DAILY 01/22/25 01/22/25 History Exam Narrative Exam Narrative: awake, NAD eomi, MMM midline trachea, neck is symmetric PULM: normal resp effort, equal chest rise with respiration, no wheezing audible CARDIAC: normal PMI, no jvd, regular rate, normal perfusion abdomen is nondistended. extremities are without deformity, normal movement of all four extremities speech is clear and coherent mood and affect are congruent, no focal neurological deficits skin without rash Results Last Vital Signs Temp 97.5 F L 01/22/25 08:53 Pulse 61 01/22/25 08:53 Resp 18 01/22/25 08:53 BP 165/90 H 01/22/25 08:53 Pulse Ox 100 01/22/25 08:53 Time Spent Time spent with Patient: <40 minutes Time was spent: preparing to see the patient(eg.review tests) and counseling the patient
--- NOTE | 2025-01-22 09:22 | W.PM.DSUDISC ---
Date of service: 01/22/25 Discharge Plan Disposition Patient Disposition: Home Discharge Details Attending Provider: Rosemary Chandra Primary Care Provider: Baljit Santana Recommendations for Follow Up Recommended tests to be ordered by follow up provider: Follow up nutritional status and ensure he remains stable as diarrhea is treated. Home Meds and New Rx's Prescriptions: Continued propranolol 10 mg tablet 10 mg PO BID PRN Rx Instructions: 1-2 tabs BID PRN - anxiety famotidine 20 mg tablet 20 mg PO BID PRN amlodipine 5 mg tablet 5 mg PO DAILY colchicine 0.6 mg tablet 0.6 mg PO BID Rx Instructions: take one tablet by mouth every morning and take two tablets by mouth every evening epinephrine [EpiPen 2-Cristobal] 0.3 mg/0.3 mL auto-injector 0.3 mg IM Q5-15M PRNQty: 2 0RF Rx Instructions: do not exceed 3 doses per episode multivitamin Tablet 1 tab PO DAILY triamcinolone acetonide 0.1 % paste 1 applic mucous membrane DAILY Discharge Instructions Additional Instructions: EGD and colonoscopy today are unremarkable for a cause for your presenting symptoms. I will follow up on the biopsy results we had planned to review, and if normal we will go ahead with starting medication to slow your guts down. If we can get you to have time to digest the nutrients you eat, I think we can help you get some weight back on, and feel more like yourself again. I recommend you quit smoking anything. Your lungs will thank you for it. When you went to sleep you coughed and reacted like an old man who has smoked for 40 years! give your lungs a break and switch to non-smokables. See you at your office follow up! Stand Alone Forms: Anesthesia Discharge Inst., DSU Post EGD Instructions, Colonoscopy Post Instructions, Judit Machado (DSU) Activity:: Activity as Tolerated Diet:: As Tolerated Discharge Orders Discharge Orders: Discharge Order (Routine); Ordered 01/22/25 Ordered By: Rosemary Chandra DS: Diagnosis Discharge Diagnosis (1) Chronic diarrhea of unknown origin: Status: Acute (2) Weight loss, non-intentional: Status: Acute (3) Hiatal hernia with gastroesophageal reflux disease without esophagitis: Status: Acute
--- NOTE | 2025-01-22 09:23 | W.PM.ENDDOP ---
Date of service: 01/22/25 Time of Service: 10:30 Endoscopy Report DATE OF PROCEDURE: 01/22/25 PRE-OP DIAGNOSIS: severe weight loss, diarrhea POST-OP DIAGNOSIS: same (small hiatal hernia) PROCEDURE: EGD with biopsy SURGEON: Rosemary Chandra ANESTHESIA TYPE: General:No Airway ESTIMATED BLOOD LOSS: 1 PATHOLOGY: other (1. antrum biopsy. 2. duodenum biopsy) COMPLICATIONS: None DISPOSITION: same day INDICATIONS: Evaluation of upper digestive system for cause for weight loss or enteropathy as cause for diarrhea PROCEDURE DESCRIPTION: Lubricated endoscope was passed through a bite block into the second portion of the duodenum. The endoscope was withdrawn and the duodenum stomach and esophageal mucosa examined. The duodenum appeared normal. There is no inflammation or ulceration or erosion. The antrum appears normal. The fundus appears normal. The cardia appears normal. The endoscope was retroflexed and there is a small hiatal hernia. GE junction is at 39cm from the incisors. The distal esophagus is normal without ulceration, varices or candidiasis. The Z-line is regular and there is no evidence of Reid's esophagus. Remainder of the esophagus appears normal Cold forceps biopsies obtained from the duodenum the antrum for microscopic evaluation for celiac sprue and H. pylori. The upper digestive system was desufflated and the endoscope withdrawn. No complications. Assessment and plan: Diarrhea weight loss small hiatal hernia No findings to explain symptoms. Biopsies obtained to rule out celiac sprue and H pylori. Will review and consider next steps in care after results are back. Continue famotidine for HH assocated reflux. Proceed with colonoscopy.
--- NOTE | 2025-01-22 09:27 | W.COLOREPORT ---
Date of service: 01/22/25 Time of Service: 10:51 Colonoscopy Report Pre-op diagnosis general: Diarrhea of unknown origin Post-op diagnosis procedure note: same (Diarrhea of unknown origin) Procedure: Colonoscopy with biopsy Surgeon: Rosemary Chandra Anesthesia Type: General:No Airway Estimated blood loss (mL): 2 Pathology: other (1. Terminal ileum biopsy. 2. ascending colon biopsy. 3. transverse colon biopsy. 4. descending colon biopsy. 5. Rectum biopsy) Prep: Miralax/Dulcolax (Good) Procedure Description: Informed consent was obtained and the patient was taken to the procedure area. The patient was placed in left lateral decubitus position on the procedure table. Timeout was performed. Anesthesia was induced. A lubricated colonoscope was inserted through the anus and passed to the cecum. The cecum was identified by the ileocecal valve and the appendiceal orifice. The scope was then slowly withdrawn and the colonic and rectal mucosa examined. TI intubated and examined. It appears normal. There are no colon or rectal mass lesions, polyps, AVMs. There is no inflammatory change. No diverticulosis was seen. The scope was retroflexed in the anorectal junction examined. Uncomplicated internal hemorrhoids present. Cold forceps biopsies obtained for evaluation for microscopic colitis. Biopsies obtained from terminal ileum, ascending colon, transverse colon, descending colon and rectum. Assessment and plan: Normal colonoscopy. Next screening colonoscopy will be due in 10 years. If biopsies are normal then we have an IBS with malabsorption here, and treatment will focus on slowing transit time in the gut. see me in office as planned.
--- NOTE | 2025-01-22 09:29 | ANES.PREOP_ITS ---
General Info Date of Service Date Performed: 01/22/25 Height: 6 ft 1 in Weight: 66.7 kg Body Mass Index (BMI): 19.3 Surgical Procedure: Operation Date: 01/22/25 09:35 Proposed Procedure Side Surgeon p Colonoscopy/Gastroscopy Rosemary Chandra MD Meds Allergies and Home Medications Allergies Allergy/AdvReac Type Severity Reaction Status Date / Time bee venom protein (honey bee) Allergy Severe Anaphylaxis Verified 01/22/25 08:50 Penicillins Allergy Unknown Anaphylaxis Verified 01/22/25 08:50 Home Medication ?Medication ?Instructions ?Recorded epinephrine 0.3 mg/0.3 mL 0.3 mg (0.3 mL) IM Q5-15M MD N #2 ea 12/13/23 injection, auto-injector (EpiPen 2-Cristobal) triamcinolone acetonide 0.1 % 1 applic mucous membrane DAILY 06/28/24 dental paste famotidine 20 mg tablet 20 mg PO BID PRN 08/23/24 propranolol 10 mg tablet 10 mg PO BID PRN 08/23/24 amlodipine 5 mg tablet 5 mg PO DAILY 12/08/24 colchicine 0.6 mg tablet 0.6 mg PO BID 12/08/24 multivitamin 1 tab PO DAILY 01/22/25 Current Visit Medications: Current Medications Generic Name Dose Route Start Last Admin Trade Name Oliver PRN Reason Stop Dose Admin Ringer's Solution 1,000 mls @ 80 mls/hr 01/22/25 06:00 01/22/25 09:09 IV 01/22/25 23:59 80 mls/hr INFUSION SUNNY Administration IV Miscellaneous Supplies 1 each 01/22/25 06:00 Iv Access IV 01/22/25 23:59 DIRECTED SUNNY Sodium Biphosphate/Sodium Phosphate 133 ml 01/22/25 06:00 Na Phosphate Enema-Adult 133 Ml Btl MD 01/22/25 23:59 DIRECTED PRN Sodium Chloride 0 ml 01/22/25 06:00 Normal Saline Flush 10 Ml Syr IV 01/22/25 23:59 PRN PRN Sodium Chloride 0 ml 01/22/25 06:00 Normal Saline 10 Ml Vial IJ 01/22/25 23:59 DIRECTED PRN Sterile Water 0 ml 01/22/25 06:00 Water,Injection,Sterile 10 Ml Vial IJ 01/22/25 23:59 DIRECTED PRN PFSH Active Problems Active Problems: Problem Status Onset Code Weight loss, non-intentional Acute R63.4 Chronic diarrhea of unknown origin Acute K52.9 Oral mucosal lesion Acute K13.70 Medical History Medical History Headache Seizure Pt. states he has not had a seizure in 10-15 years-Pt. states he had testing done and they did not find anything, and does not f/u with neuro currently Recurrent aphthous ulcer Aphthous ulcer of mouth Cannabis use disorder Tobacco Smoking/Tobacco Use Status: Current every day Tobacco Type: e-cigarettes Alcohol Alcohol Intake: current Alcohol intake frequency: 0-2 drinks per day Substance Use Substance use: Occasionally Substance use type: marijuana Details: last drink 01/20/25 1700, last cannabis 01/20/25, daily average is 1 bowl. Vital Signs and Lab Results Vital Signs Most Recent Vital Signs in EMR: Most Recent Vital Signs Temp Pulse Resp BP Pulse Ox 36.4 C L 61 18 165/90 H 100 01/22/25 08:53 01/22/25 08:53 01/22/25 08:53 01/22/25 08:53 01/22/25 08:53 Imaging and Studies Imaging and Studies Study information below may be from another EMR and interpreted by another provider. Please see original notes in EMR for more complete details. EKG Summary: 06/28/24: Exam: Resting ECG Reason for Exam: recheck from previous Patient Location: E HR:61 bpm ECG Measurements Heart Rate 61 AXIS MD 153 P -89 QRSd 83 QRS 56 QT 430 T56 QTc 433 Conclusion Atrial rhythm, p waves flipped from priors, rate 61 No interval abnormalities Diffuse ST segment elevation and tall T waves persist compared to prior, concave, JULIÁN vs pericarditis likely I have reviewed and I agree with the emergency room physician's ECG interpretation. Anesthesia Assessment and Plan Anesthesia History Personal History: No History of General Anesthesia Family History: No Family History of Anesthesia Complications Exercise Tolerance Exercise Tolerance: Metabolic Equivalents>4 Cardiac & Pulmonary Exam Cardiac Exam: Normal S1/S2 Heart Sounds Pulmonary Exam: Clear Bilateral Breath Sounds Implantable Cardiac Device Does patient have a Pacemaker or an ICD?: No Airway Exam Known Difficult Airway: No Mallampati Class: 1 Mouth Opening: Normal (> 3cm) Thyromental Distance: Greater than 3 cm Neck Range of Motion: Full ROM Neck Circumference: Normal Teeth Condition: Normal Dentition ASA Classification ASA Score: ASA 2 Emergency Case?: No NPO Status NPO Status: NPO Clears >2 hours, Solids >8 hours Anesthesia Plan Resuscitation Status: Full Code Anesthesia Technique: General Anesthesia Airway Planned: Natural Airway Monitors Used: Standard Monitors
[2025-01-22 09:43] VITALS: BMI 19.3
--- NOTE | 2025-01-22 09:57 | BOWEL_PTH ---
PATIENT: Zafar Murray JR LOC: [facility] U#:[id number] AGE/SX: 34/M ROOM: RE01/22/[address]: Rosemary Chandra MD : 1990 BED: DIS: 01/22/2025 SPEC #: [id number] RECD: 01/22/25 12:48 STATUS: CÉSAR REKhadijah #: [id number] [place]: 01/22/25 09:[address]: Rosemary Chandra DEPT: Surgical Specimen RECD BY: Sofy Santos Tissues: 1 - BIOPSY BOWEL 2 - STOMACH BIOPSY 3 - BIOPSY BOWEL 4 - BIOPSY BOWEL 5 - BIOPSY BOWEL 6 - BIOPSY BOWEL 7 - BIOPSY BOWEL Procedures: GROSS AND MICRO LEVEL 4 Comments: [id number]
[2025-01-22 10:25] VITALS: BP 127/88; PULSE 68; RESP 18; TEMP 36.2; O2SAT 94
[2025-01-22 10:57] VITALS: BP 156/91; PULSE 54; RESP 14; TEMP 36.3; O2SAT 100
--- NOTE | 2025-01-22 11:27 | W.ANESPOSTOP ---
Postoperative Evaluation Date, Time and Location Date Performed: 01/22/25 Time Performed: 10:31 Patient Location: Day Surgery Unit Vital Signs Most Recent Imported Vital Signs: Most Recent Vital Signs Temp Pulse Resp BP Pulse Ox 36.3 C L 54 L 14 156/91 H 100 01/22/25 10:57 01/22/25 10:57 01/22/25 10:57 01/22/25 10:57 01/22/25 10:57 Pain Score Most Recent Pain Score: Most Recent Pain Score Pain Level 0 01/22/25 10:57 Assessment Mental Status: Arousable with meaningful communication Airway and Respiratory Function: Patent airway with normal (patient baseline) respiratory exam Cardiovascular Function: Hemodynamically Stable Hydration Status: Adequately Hydrated Nausea & Vomiting: No Nausea or Vomiting Pain: Pt. Denies Any Pain Peripheral Nerve Block: Patient did not receive a nerve block
== END 2025-01-22 11:05 | disposition home or self-care (01) ==
PROVIDERS: PCP Family Medicine; Visit Provider Surgery
PROC: (CPT 45380; principal; 2025-01-22 09:30)
DX: K52.9 Noninfective gastroenteritis and colitis, unspecified (principal); R63.4 Abnormal weight loss; K44.9 Diaphragmatic hernia without obstruction or gangrene; K21.9 Gastro-esophageal reflux disease without esophagitis
CPT/HCPCS: 45380; 43239; 88305; J2003; J2250; J2704